=== PATIENT | male | born 1965 | race Caucasian/White ===

== ENCOUNTER 2019-11-19 11:34 | Emergency (ER) | payer OTHER, MEDICARE ==
[~2019-11-19] VITALS: Ht 177.8 cm; Wt 130.4 kg
[2019-11-19] MEDS ORDERED: RANI150T7 PO (11:58)
[2019-11-19] MEDS ORDERED: SPIR25 PO (11:58)
[2019-11-19] MEDS ORDERED: LISI-662 PO (11:58)
[2019-11-19] MEDS ORDERED: APIX5TAB PO (11:58)
[2019-11-19] MEDS ORDERED: GABA-531 PO (11:58)
[2019-11-19] MEDS ORDERED: ASPI-728 PO (11:58)
[2019-11-19] MEDS ORDERED: ATOR40TA28 PO (11:58)
[2019-11-19] MEDS ORDERED: AMLO10TA7 PO (11:58)
[2019-11-19] MEDS ORDERED: PANT40TA25 PO (11:58)
[2019-11-19] MEDS ORDERED: ISOS60TA4 PO (11:58)
[2019-11-19] MEDS ORDERED: FURO20 PO (11:58)
[2019-11-19] MEDS ORDERED: CARV25 PO (11:58)
[2019-11-19] MEDS ORDERED: METF-960 PO (11:58)
[2019-11-19] MEDS ORDERED: SULFAMETHOX/TRIMETH DS 800-160 MG/TABLET PO ONE (12:45)
[2019-11-19] MEDS ORDERED: CEPHALEXIN MONOHYDRATE 500 MG CAPSULE PO ONE (12:45)
[2019-11-19 13:18] VITALS: BP 151/82
[2019-11-19] MEDS ORDERED: IBUPROFEN 400 MG TABLET PO ONE (13:45)
== END 2019-11-19 14:45 | disposition home or self-care (01) ==
LOC: EMS 11:38
DX: L03.317 Cellulitis of buttock (principal); E11.9 Type 2 diabetes mellitus without complications; E78.00 Pure hypercholesterolemia, unspecified; I48.91 Unspecified atrial fibrillation; I25.10 Atherosclerotic heart disease of native coronary artery without angina pectoris; I10 Essential (primary) hypertension; Z90.49 Acquired absence of other specified parts of digestive tract; Z79.899 Other long term (current) drug therapy; Z98.890 Other specified postprocedural states; Z88.0 Allergy status to penicillin; Z86.73 Personal history of transient ischemic attack (TIA), and cerebral infarction without residual deficits; Z86.718 Personal history of other venous thrombosis and embolism; Z88.8 Allergy status to other drugs, medicaments and biological substances; Z79.82 Long term (current) use of aspirin
CPT/HCPCS: 76881

== ENCOUNTER 2020-01-14 19:38 | Emergency (ER) | payer OTHER ==
[~2020-01-14] VITALS: Ht 177.8 cm; Wt 131.8 kg
[~2020-01-14 19:38] MED LIST: AMLO10TA7 PO; APIX5TAB PO; ASPI-728 PO; ATOR40TA28 PO; CARV25 PO; FURO20 PO; GABA-531 PO; ISOS60TA4 PO; LISI-662 PO; METF-960 PO; PANT40TA25 PO; RANI150T7 PO; SPIR25 PO
[2020-01-14] MEDS ORDERED: TRAZ-252 PO (20:37)
[2020-01-14] MEDS ORDERED: INSREG SQ (20:37)
[2020-01-14] MEDS ORDERED: INSLAN SQ (20:37)
[2020-01-14 20:40] LABS: GLUCOSE,POINT OF CARE 394 MG/DL (70-110)
[2020-01-14] MEDS ORDERED: METF-961 PO (20:41)
[2020-01-14] MEDS ORDERED: AMLO5TAB9 PO (20:41)
[2020-01-14] MEDS ORDERED: KETOROLAC TROMETHAMINE 30 MG/ML VIAL IM ONE (20:45)
[2020-01-14 21:50] VITALS: BP 143/79
== END 2020-01-14 22:05 | disposition home or self-care (01) ==
LOC: EDSEX → EMS 19:38
DX: M79.604 Pain in right leg (principal); I48.91 Unspecified atrial fibrillation; I25.10 Atherosclerotic heart disease of native coronary artery without angina pectoris; F32.9 Major depressive disorder, single episode, unspecified; E11.9 Type 2 diabetes mellitus without complications; E78.00 Pure hypercholesterolemia, unspecified; I25.2 Old myocardial infarction; Z90.89 Acquired absence of other organs; Z88.0 Allergy status to penicillin; Z88.8 Allergy status to other drugs, medicaments and biological substances; Z79.899 Other long term (current) drug therapy; Z79.4 Long term (current) use of insulin
CPT/HCPCS: 82962; 93971; 96372; 99284; J1885

== ENCOUNTER 2020-01-17 22:20 | Inpatient (IN) | payer OTHER ==
[~2020-01-17 22:20] MED LIST changes: -AMLO10TA7 PO; +AMLO5TAB9 PO; +INSLAN SQ; +INSREG SQ; -METF-960 PO; +METF-961 PO; -RANI150T7 PO; +TRAZ-252 PO
[2020-01-17 22:24] VITALS: BP 182/114
[2020-01-17 23:10] VITALS: BP 200/109
[2020-01-17] MEDS ORDERED: OxyCODONE HCL/ACETAMINOPHEN 5-325 MG TABLET PO PRN (23:30)
[2020-01-17] MEDS ORDERED: 0.9% SODIUM CHLORIDE 10 ML SYRINGE IVP PRN (23:30)
[2020-01-17] MEDS ORDERED: MAGNESIUM HYDROXIDE SUSPENSION 30 ML UDCUP PO PRN (23:30)
[2020-01-17] MEDS ORDERED: ACETAMINOPHEN 325 MG TABLET PO PRN (23:30)
[2020-01-17] MEDS ORDERED: ONDANSETRON HCL 4 MG/2 ML VIAL IVP PRN (23:30)
[2020-01-17] MEDS ORDERED: DEXTROSE 50%-WATER 25 GM/50 ML SYRINGE IVP PRN (23:30)
[2020-01-18] MEDS: PANTOPRAZOLE SODIUM 40 MG DR TABLET PO SCH ×3 (00:50→20:37)
[2020-01-18] MEDS: TraZODone HCL 50 MG TABLET PO SCH ×2 (00:51→20:43)
[2020-01-18] MEDS: DOCUSATE SODIUM 100 MG CAPSULE PO SCH ×2 (00:51→09:00)
[2020-01-18] MEDS: APIXABAN 5 MG TABLET PO SCH ×3 (00:51→20:37)
[2020-01-18] MEDS: CARVEDILOL 25 MG TABLET PO SCH ×3 (00:51→20:38)
[2020-01-18] MEDS: ATORVASTATIN CALCIUM 40 MG TABLET PO SCH ×2 (00:51→20:37)
[2020-01-18] MEDS: INSULIN GLARGINE,HUM.REC.ANLOG 100 UNITS/ML SQ SCH ×3 (00:54→20:41)
[2020-01-18] MEDS: INSULIN LISPRO 100 UNITS/ML SQ PRN ×4 (00:55→20:42)
[2020-01-18 03:04] VITALS: BP 147/71
[2020-01-18 04:19] LABS: GLUCOMETER DEV NAME(LOC) 5S.1; GLUCOSE,POINT OF CARE 290 MG/DL (70-110)
[2020-01-18 08:38] VITALS: BP 173/85
[2020-01-18] MEDS: LISINOPRIL 20 MG TABLET PO SCH (09:00)
[2020-01-18] MEDS: ISOSORBIDE MONONITRATE 60 MG ER TABLET PO SCH (09:00)
[2020-01-18] MEDS: SPIRONOLACTONE 25 MG TABLET PO SCH (09:00)
[2020-01-18] MEDS: GABAPENTIN 300 MG CAPSULE PO SCH ×3 (09:00→20:37)
[2020-01-18] MEDS: ASPIRIN 81 MG CHEWABLE TABLET PO SCH (09:00)
[2020-01-18] MEDS: AmLODIPine BESYLATE 5 MG TABLET PO SCH (09:00)
[2020-01-18 10:05] LABS: GLUCOMETER DEV NAME(LOC) 5N.2; GLUCOSE,POINT OF CARE 266 MG/DL (70-110)
[2020-01-18] MEDS ORDERED: HydrALAZINE HCL 20 MG/ML VIAL IVP PRN (11:45)
[2020-01-18 11:51] VITALS: BP 144/96
[2020-01-18 12:06] LABS: BASOPHILS % (AUTO) 0.7 % (0.0-2.0); HEMATOCRIT 41.1 % (41-53); HEMOGLOBIN 13.7 g/dL (13.5-17.5); LYMPHOCYTES # (AUTO) 1.3 K/uL (1.0-4.8); LYMPHOCYTES % (AUTO) 20.4 % (22.0-44.0); MEAN CORPUSCULAR HEMOGLOBIN 26.8 pg (26.0-34.0); MEAN CORPUSCULAR HGB CONC 33.2 G/dL (31.0-37.0); MEAN CORPUSCULAR VOLUME 81 fL (80-100); MONOCYTES # (AUTO) 0.6 K/uL (0.1-1.0); MONOCYTES % (AUTO) 9.2 % (2.0-9.0); NEUTROPHILS % (AUTO) 63.7 % (40.0-70.0); PLATELET COUNT (AUTO) 183 K/uL (150-450); RED BLOOD CELL COUNT(AUTO) 5.09 MIL/uL (4.50-5.90)
[2020-01-18 12:13] LABS: GLUCOMETER DEV NAME(LOC) 5N.1; GLUCOSE,POINT OF CARE 269 MG/DL (70-110)
[2020-01-18 12:27] LABS: ALANINE AMINOTRANSFERASE 37 U/L (12-78); ALBUMIN 3.3 g/dL (3.4-5.0); ALKALINE PHOSPHATASE 58 U/L (46-116); ANION GAP 9 mmol/L (8-16); ASPARTATE AMINOTRANSFERASE 24 U/L (15-37); BILIRUBIN,TOTAL 0.9 mg/dL (0.1-1.0); CALCIUM, TOTAL 8.4 mg/dL (8.8-10.5); CARBON DIOXIDE 25 mmol/L (22-29); CHLORIDE 104 mmol/L (98-107); CREATININE 0.83 mg/dL (0.60-1.30); GLOMERULAR FILTR. RATE CALC > 60 mL/min (>60); GLUCOSE,RANDOM 292 mg/dL (70-110); POTASSIUM 3.9 mmol/L (3.5-5.1); SODIUM SERUM 138 mmol/L (136-145); UREA NITROGEN, BLOOD 14 mg/dL (7-18)
[2020-01-18] MEDS: FUROSEMIDE 40 MG/4 ML VIAL IVP SCH (13:13)
[2020-01-18 15:51] VITALS: BP 123/77
[2020-01-18] MEDS: OxyCODONE HCL/ACETAMINOPHEN 5-325 MG TABLET PO PRN ×2 (17:54→23:27)
[2020-01-18 20:24] LABS: GLUCOMETER DEV NAME(LOC) 5N.1; GLUCOSE,POINT OF CARE 313 MG/DL (70-110)
[2020-01-18 20:24] LABS: GLUCOMETER DEV NAME(LOC) 5N.1; GLUCOSE,POINT OF CARE 293 MG/DL (70-110)
[2020-01-18 20:28] VITALS: BP 127/80
[2020-01-18] MEDS: DOCUSATE SODIUM 100 MG CAPSULE PO PRN (20:37)
[2020-01-18 23:23] VITALS: BP 148/75
[2020-01-19 03:55] LABS: INFLUENZA TYPE A NEGATIVE FOR TYPE A (NEGATIVE); INFLUENZA TYPE B NEGATIVE FOR TYPE B (NEGATIVE)
[2020-01-19 04:31] VITALS: BP 132/77
[2020-01-19] MEDS: OxyCODONE HCL/ACETAMINOPHEN 5-325 MG TABLET PO PRN ×2 (06:03→12:59)
[2020-01-19 08:07] VITALS: BP 172/98
[2020-01-19 08:16] LABS: CHOL/HDL RATIO 4.4 (4.2-7.3)
[2020-01-19] MEDS: FUROSEMIDE 40 MG/4 ML VIAL IVP SCH (08:35)
[2020-01-19] MEDS: ISOSORBIDE MONONITRATE 60 MG ER TABLET PO SCH (08:36)
[2020-01-19] MEDS: AmLODIPine BESYLATE 5 MG TABLET PO SCH (08:36)
[2020-01-19] MEDS: GABAPENTIN 300 MG CAPSULE PO SCH ×3 (08:36→22:10)
[2020-01-19] MEDS: ASPIRIN 81 MG CHEWABLE TABLET PO SCH (08:36)
[2020-01-19] MEDS: LISINOPRIL 20 MG TABLET PO SCH (08:36)
[2020-01-19] MEDS: CARVEDILOL 25 MG TABLET PO SCH ×2 (08:37→22:11)
[2020-01-19] MEDS: APIXABAN 5 MG TABLET PO SCH ×2 (08:37→22:11)
[2020-01-19] MEDS: SPIRONOLACTONE 25 MG TABLET PO SCH (08:37)
[2020-01-19] MEDS: PANTOPRAZOLE SODIUM 40 MG DR TABLET PO SCH ×2 (08:37→22:10)
[2020-01-19] MEDS: INSULIN GLARGINE,HUM.REC.ANLOG 100 UNITS/ML SQ SCH ×2 (08:51→22:14)
[2020-01-19 12:13] VITALS: BP 152/76
[2020-01-19] MEDS: INSULIN LISPRO 100 UNITS/ML SQ PRN ×2 (12:35→22:14)
[2020-01-19 15:40] VITALS: BP 122/60
[2020-01-19 20:41] VITALS: BP 128/74
[2020-01-19 20:43] LABS: GLUCOMETER DEV NAME(LOC) 5N.2; GLUCOSE,POINT OF CARE 362 MG/DL (70-110)
[2020-01-19 20:43] LABS: GLUCOMETER DEV NAME(LOC) 5N.2; GLUCOSE,POINT OF CARE 257 MG/DL (70-110)
[2020-01-19 20:43] LABS: GLUCOMETER DEV NAME(LOC) 5N.2; GLUCOSE,POINT OF CARE 269 MG/DL (70-110)
[2020-01-19] MEDS: ATORVASTATIN CALCIUM 40 MG TABLET PO SCH (22:11)
[2020-01-19] MEDS: TraZODone HCL 50 MG TABLET PO SCH ×2 (22:12→23:42)
[2020-01-20 00:07] VITALS: BP 141/76
[2020-01-20 05:49] VITALS: BP 140/67
[2020-01-20] MEDS: OxyCODONE HCL/ACETAMINOPHEN 5-325 MG TABLET PO PRN ×2 (06:29→21:01)
[2020-01-20] MEDS: INSULIN LISPRO 100 UNITS/ML SQ PRN ×4 (06:38→21:06)
[2020-01-20 08:16] VITALS: BP 144/78
[2020-01-20 08:22] LABS: BASOPHILS % (AUTO) 0.6 % (0.0-2.0); HEMATOCRIT 39.7 % (41-53); HEMOGLOBIN 13.4 g/dL (13.5-17.5); LYMPHOCYTES # (AUTO) 1.3 K/uL (1.0-4.8); LYMPHOCYTES % (AUTO) 23.1 % (22.0-44.0); MEAN CORPUSCULAR HEMOGLOBIN 27.2 pg (26.0-34.0); MEAN CORPUSCULAR HGB CONC 33.7 G/dL (31.0-37.0); MEAN CORPUSCULAR VOLUME 81 fL (80-100); MONOCYTES # (AUTO) 0.7 K/uL (0.1-1.0); MONOCYTES % (AUTO) 12.9 % (2.0-9.0); NEUTROPHILS # (AUTO) 3.2 K/uL (1.8-7.7); NEUTROPHILS % (AUTO) 56.4 % (40.0-70.0); PLATELET COUNT (AUTO) 168 K/uL (150-450); RED BLOOD CELL COUNT(AUTO) 4.92 MIL/uL (4.50-5.90); RED CELL DISTRIBUTION WIDTH 15.4 % (11.5-14.5)
[2020-01-20 08:23] LABS: ALANINE AMINOTRANSFERASE 31 U/L (12-78); ALBUMIN 3.2 g/dL (3.4-5.0); ALKALINE PHOSPHATASE 56 U/L (46-116); ANION GAP 6 mmol/L (8-16); ASPARTATE AMINOTRANSFERASE 20 U/L (15-37); BILIRUBIN,TOTAL 0.6 mg/dL (0.1-1.0); CALCIUM, TOTAL 9.7 mg/dL (8.8-10.5); CARBON DIOXIDE 28 mmol/L (22-29); CHLORIDE 103 mmol/L (98-107); CREATININE 0.79 mg/dL (0.60-1.30); GLOMERULAR FILTR. RATE CALC > 60 mL/min (>60); GLUCOSE,RANDOM 301 mg/dL (70-110); POTASSIUM 3.8 mmol/L (3.5-5.1); SODIUM SERUM 137 mmol/L (136-145); TOTAL PROTEIN, SERUM 6.8 g/dL (6.4-8.2); UREA NITROGEN, BLOOD 20 mg/dL (7-18)
[2020-01-20] MEDS: FUROSEMIDE 40 MG/4 ML VIAL IVP SCH ×2 (09:35→09:36)
[2020-01-20] MEDS: GABAPENTIN 300 MG CAPSULE PO SCH ×3 (09:37→21:01)
[2020-01-20] MEDS: ASPIRIN 81 MG CHEWABLE TABLET PO SCH (09:37)
[2020-01-20] MEDS: DOCUSATE SODIUM 100 MG CAPSULE PO PRN (09:37)
[2020-01-20] MEDS: ISOSORBIDE MONONITRATE 60 MG ER TABLET PO SCH (09:37)
[2020-01-20] MEDS: PANTOPRAZOLE SODIUM 40 MG DR TABLET PO SCH ×2 (09:37→20:56)
[2020-01-20] MEDS: CARVEDILOL 25 MG TABLET PO SCH ×2 (09:38→20:56)
[2020-01-20] MEDS: INSULIN GLARGINE,HUM.REC.ANLOG 100 UNITS/ML SQ SCH ×2 (09:41→21:06)
[2020-01-20] MEDS: LISINOPRIL 20 MG TABLET PO SCH (12:23)
[2020-01-20] MEDS: APIXABAN 5 MG TABLET PO SCH ×2 (12:24→20:58)
[2020-01-20] MEDS: SPIRONOLACTONE 25 MG TABLET PO SCH (12:24)
[2020-01-20] MEDS: AmLODIPine BESYLATE 5 MG TABLET PO SCH (12:24)
[2020-01-20 12:35] VITALS: BP 121/71
[2020-01-20 12:41] LABS: GLUCOMETER DEV NAME(LOC) 5N.2; GLUCOSE,POINT OF CARE 291 MG/DL (70-110)
[2020-01-20 12:47] LABS: GLUCOMETER DEV NAME(LOC) 5N.1; GLUCOSE,POINT OF CARE 259 MG/DL (70-110)
[2020-01-20 12:48] LABS: GLUCOMETER DEV NAME(LOC) 5N.1; GLUCOSE,POINT OF CARE 282 MG/DL (70-110)
[2020-01-20 15:04] VITALS: BP 106/58
[2020-01-20 19:27] VITALS: BP 123/65
[2020-01-20] MEDS: ATORVASTATIN CALCIUM 40 MG TABLET PO SCH (20:56)
[2020-01-20] MEDS: TraZODone HCL 50 MG TABLET PO SCH (20:57)
[2020-01-20 21:01] LABS: GLUCOMETER DEV NAME(LOC) 5N.1; GLUCOSE,POINT OF CARE 245 MG/DL (70-110)
[2020-01-21 00:15] VITALS: BP 116/65
[2020-01-21 04:48] VITALS: BP 140/66
[2020-01-21 06:15] LABS: GLUCOMETER DEV NAME(LOC) 5N.2; GLUCOSE,POINT OF CARE 249 MG/DL (70-110)
[2020-01-21 07:48] VITALS: BP 148/89
[2020-01-21 07:54] LABS: GLUCOMETER DEV NAME(LOC) 5N.2; GLUCOSE,POINT OF CARE 227 MG/DL (70-110)
[2020-01-21] MEDS: ISOSORBIDE MONONITRATE 60 MG ER TABLET PO SCH (08:11)
[2020-01-21] MEDS: GABAPENTIN 300 MG CAPSULE PO SCH ×2 (08:11→15:21)
[2020-01-21] MEDS: PANTOPRAZOLE SODIUM 40 MG DR TABLET PO SCH (08:11)
[2020-01-21] MEDS: AmLODIPine BESYLATE 5 MG TABLET PO SCH (08:11)
[2020-01-21] MEDS: LISINOPRIL 20 MG TABLET PO SCH (08:11)
[2020-01-21] MEDS: SPIRONOLACTONE 25 MG TABLET PO SCH (08:12)
[2020-01-21] MEDS: CARVEDILOL 25 MG TABLET PO SCH (08:13)
[2020-01-21] MEDS: APIXABAN 5 MG TABLET PO SCH (08:13)
[2020-01-21] MEDS: ASPIRIN 81 MG CHEWABLE TABLET PO SCH (08:13)
[2020-01-21] MEDS: INSULIN GLARGINE,HUM.REC.ANLOG 100 UNITS/ML SQ SCH (08:17)
[2020-01-21 11:19] VITALS: BP 128/88
[2020-01-21] MEDS: INSULIN LISPRO 100 UNITS/ML SQ PRN ×2 (11:46→17:24)
[2020-01-21 12:21] LABS: GLUCOMETER DEV NAME(LOC) 5N.2; GLUCOSE,POINT OF CARE 326 MG/DL (70-110)
[2020-01-21] MEDS: OxyCODONE HCL/ACETAMINOPHEN 5-325 MG TABLET PO PRN (14:42)
[2020-01-21 17:08] VITALS: BP 117/78
[2020-01-22 07:36] LABS: GLUCOMETER DEV NAME(LOC) 5N.1; GLUCOSE,POINT OF CARE 211 MG/DL (70-110)
== END 2020-01-21 17:40 | disposition home or self-care (01) | DRG 292 ==
LOC: 5S 22:20 → EDSEX 22:20 → 5N 01-18 05:00
PROVIDERS: ADMIT Internal Medicine; ATTEND Internal Medicine
DX: I11.0 Hypertensive heart disease with heart failure (principal); I48.20 Chronic atrial fibrillation, unspecified; I82.409 Acute embolism and thrombosis of unspecified deep veins of unspecified lower extremity; E11.9 Type 2 diabetes mellitus without complications; E78.00 Pure hypercholesterolemia, unspecified; E66.9 Obesity, unspecified; D64.9 Anemia, unspecified; Z20.828 Contact with and (suspected) exposure to other viral communicable diseases; F32.9 Major depressive disorder, single episode, unspecified; I25.10 Atherosclerotic heart disease of native coronary artery without angina pectoris; E78.5 Hyperlipidemia, unspecified; I50.43 Acute on chronic combined systolic (congestive) and diastolic (congestive) heart failure; Z91.14 Patient's other noncompliance with medication regimen; Z88.0 Allergy status to penicillin; Z88.8 Allergy status to other drugs, medicaments and biological substances; Z86.73 Personal history of transient ischemic attack (TIA), and cerebral infarction without residual deficits; Z79.4 Long term (current) use of insulin; I25.2 Old myocardial infarction; Z86.718 Personal history of other venous thrombosis and embolism; Z90.49 Acquired absence of other specified parts of digestive tract; Z95.5 Presence of coronary angioplasty implant and graft; Z79.84 Long term (current) use of oral hypoglycemic drugs
CPT/HCPCS: 83735; 84145; 87635; 87804; 93005; 93306; J1815; J1940

== ENCOUNTER 2021-03-10 10:41 | Inpatient (IN) | payer OTHER ==
[~2021-03-10] VITALS: Ht 167.6 cm; Wt 129.1 kg
[~2021-03-10 10:41] MED LIST changes: +AMLO-257 PO; -AMLO5TAB9 PO; +ASPI-1450 PO; -ASPI-728 PO; +GABA-1181 PO; -GABA-531 PO; -ISOS60TA4 PO; +ISOS60TA77 PO; -LISI-662 PO; +LISI-894 PO; +PANT-31 PO; -PANT40TA25 PO
[2021-03-10] MEDS ORDERED: ASPIRIN 81 MG CHEWABLE TABLET PO ONE (11:00)
[2021-03-10] MEDS ORDERED: DULO30CA96 PO (11:05)
[2021-03-10] MEDS ORDERED: OMEP20 PO (11:05)
[2021-03-10] MEDS ORDERED: HYD50 PO (11:05)
[2021-03-10] MEDS ORDERED: GLIP5 PO (11:05)
[2021-03-10] MEDS ORDERED: FURO40 PO (11:25)
[2021-03-10] MEDS ORDERED: AMLO-258 PO (11:25)
[2021-03-10] MEDS ORDERED: TRAZ150 PO (11:25)
[2021-03-10] MEDS ORDERED: GABA-1201 PO (11:26)
[2021-03-10 11:35] LABS: GLUCOSE,POINT OF CARE 343 MG/DL (70-110)
[2021-03-10 11:47] LABS: BASOPHILS % (AUTO) 0.5 % (0.0-2.0); EOSINOPHILS % (AUTO) 4.4 % (1.0-6.0); HEMATOCRIT 39.9 % (41-53); HEMOGLOBIN 13.5 g/dL (13.5-17.5); LYMPHOCYTES # (AUTO) 1.5 K/uL (1.0-4.8); LYMPHOCYTES % (AUTO) 26.6 % (22.0-44.0); MEAN CORPUSCULAR HEMOGLOBIN 27.3 pg (26.0-34.0); MEAN CORPUSCULAR HGB CONC 33.9 G/dL (31.0-37.0); MEAN CORPUSCULAR VOLUME 80 fL (80-100); MONOCYTES # (AUTO) 0.6 K/uL (0.1-1.0); MONOCYTES % (AUTO) 10.4 % (2.0-9.0); NEUTROPHILS # (AUTO) 3.3 K/uL (1.8-7.7); NEUTROPHILS % (AUTO) 58.1 % (40.0-70.0); PLATELET COUNT (AUTO) 165 K/uL (150-450); RED BLOOD CELL COUNT(AUTO) 4.97 MIL/uL (4.50-5.90); RED CELL DISTRIBUTION WIDTH 13.2 % (11.5-14.5)
[2021-03-10 11:55] LABS: ANION GAP 7 mmol/L (8-16); CALCIUM, TOTAL 8.3 mg/dL (8.8-10.5); CARBON DIOXIDE 28 mmol/L (22-29); CHLORIDE 104 mmol/L (98-107); CREATININE 0.83 mg/dL (0.60-1.30); GLOMERULAR FILTR. RATE CALC > 60 mL/min (>60); GLUCOSE,RANDOM 347 mg/dL (70-110); POTASSIUM 3.5 mmol/L (3.5-5.1); SODIUM SERUM 139 mmol/L (136-145); UREA NITROGEN, BLOOD 11 mg/dL (7-18)
[2021-03-10 12:05] LABS: B-TYPE NATRIURETIC PEPTIDE 112 pg/mL (0-100)
[2021-03-10 12:16] LABS: COVID AG,FIA SOURCE NASOPHARYNGEAL
[2021-03-10] MEDS ORDERED: ONDANSETRON HCL 4 MG/2 ML VIAL IVP PRN ×2 (12:45→18:45)
[2021-03-10] MEDS ORDERED: ACETAMINOPHEN 325 MG TABLET PO PRN (12:45)
[2021-03-10] MEDS ORDERED: DEXTROSE 50%-WATER 25 GM/50 ML SYRINGE IVP PRN (13:45)
[2021-03-10 14:09] VITALS: BP 172/101
[2021-03-10 15:25] VITALS: BP 159/92
[2021-03-10] MEDS: INSULIN LISPRO 100 UNITS/ML SQ PRN ×2 (18:24→20:57)
[2021-03-10] MEDS ORDERED: ZOLPIDEM TARTRATE 10 MG TABLET PO PRN (18:45)
[2021-03-10] MEDS ORDERED: MAGNESIUM HYDROXIDE SUSPENSION 30 ML UDCUP PO PRN (18:45)
[2021-03-10] MEDS ORDERED: IPRATROPIUM BROMIDE 0.5 MG/2.5 ML NEB SOLUTION NEB PRN (18:45)
[2021-03-10 20:52] VITALS: BP 145/97
[2021-03-10] MEDS: TraZODone HCL 150 MG TABLET PO SCH (20:54)
[2021-03-10] MEDS: ATORVASTATIN CALCIUM 40 MG TABLET PO SCH (20:54)
[2021-03-10] MEDS: HydrOXYzine HCL 50 MG TABLET PO SCH (20:54)
[2021-03-10] MEDS: APIXABAN 5 MG TABLET PO SCH (20:54)
[2021-03-10] MEDS: GABAPENTIN 400 MG CAPSULE PO SCH (20:55)
[2021-03-10] MEDS: CARVEDILOL 25 MG TABLET PO SCH (20:55)
[2021-03-11 00:02] VITALS: BP 143/86
[2021-03-11] MEDS: NITROGLYCERIN 2% (1 GM=INCH) PACKET TP SCH ×4 (00:16→17:37)
[2021-03-11 03:50] VITALS: BP 144/84
[2021-03-11] MEDS: ACETAMINOPHEN 325 MG TABLET PO PRN ×2 (05:39→12:01)
[2021-03-11] MEDS: GlipiZIDE 5 MG TABLET PO SCH (05:39)
[2021-03-11] MEDS: INSULIN LISPRO 100 UNITS/ML SQ PRN ×4 (05:41→20:26)
[2021-03-11 07:07] LABS: CHOL/HDL RATIO 4.6 (4.2-7.3)
[2021-03-11 08:20] VITALS: BP 138/78
[2021-03-11] MEDS: CARVEDILOL 25 MG TABLET PO SCH ×2 (09:00→20:24)
[2021-03-11] MEDS: OMEPRAZOLE 20 MG CAPSULE PO SCH (09:28)
[2021-03-11] MEDS: APIXABAN 5 MG TABLET PO SCH ×2 (09:28→20:24)
[2021-03-11] MEDS: ASPIRIN 81 MG CHEWABLE TABLET PO SCH (09:28)
[2021-03-11] MEDS: GABAPENTIN 400 MG CAPSULE PO SCH ×3 (09:28→20:24)
[2021-03-11] MEDS: AmLODIPine BESYLATE 10 MG TABLET PO SCH (09:28)
[2021-03-11] MEDS: DULoxetine HCL 30 MG CAPSULE PO SCH (09:28)
[2021-03-11 12:24] VITALS: BP 133/81
[2021-03-11 15:30] VITALS: BP 144/80
[2021-03-11 17:34] LABS: GLUCOMETER DEV NAME(LOC) 5S.2B; GLUCOSE,POINT OF CARE 269 MG/DL (70-110)
[2021-03-11 20:07] VITALS: BP 141/86
[2021-03-11] MEDS: TraZODone HCL 150 MG TABLET PO SCH (20:23)
[2021-03-11] MEDS: HydrOXYzine HCL 50 MG TABLET PO SCH (20:24)
[2021-03-11] MEDS: ATORVASTATIN CALCIUM 40 MG TABLET PO SCH (20:24)
[2021-03-12 00:50] VITALS: BP 142/83
[2021-03-12 05:28] VITALS: BP 142/78
[2021-03-12] MEDS: NITROGLYCERIN 2% (1 GM=INCH) PACKET TP SCH ×3 (05:54→12:00)
[2021-03-12] MEDS: INSULIN LISPRO 100 UNITS/ML SQ PRN ×2 (05:54→12:13)
[2021-03-12] MEDS: GlipiZIDE 5 MG TABLET PO SCH (05:54)
[2021-03-12 07:25] VITALS: BP 133/79
[2021-03-12] MEDS: OMEPRAZOLE 20 MG CAPSULE PO SCH (08:17)
[2021-03-12] MEDS: AmLODIPine BESYLATE 10 MG TABLET PO SCH (08:17)
[2021-03-12] MEDS: GABAPENTIN 400 MG CAPSULE PO SCH (08:17)
[2021-03-12] MEDS: DULoxetine HCL 30 MG CAPSULE PO SCH (08:17)
[2021-03-12] MEDS: ASPIRIN 81 MG CHEWABLE TABLET PO SCH (08:17)
[2021-03-12] MEDS: APIXABAN 5 MG TABLET PO SCH (08:17)
[2021-03-12] MEDS: CARVEDILOL 25 MG TABLET PO SCH (08:17)
[2021-03-12 11:21] VITALS: BP 154/84
[2021-03-12 11:37] LABS: GLUCOMETER DEV NAME(LOC) 5S.1; GLUCOSE,POINT OF CARE 269 MG/DL (70-110)
[2021-03-12 12:44] LABS: GLUCOMETER DEV NAME(LOC) 5N.1C; GLUCOSE,POINT OF CARE 218 MG/DL (70-110)
[2021-03-12 12:44] LABS: GLUCOMETER DEV NAME(LOC) 5N.1C; GLUCOSE,POINT OF CARE 252 MG/DL (70-110)
[2021-03-13 11:31] LABS: GLUCOMETER DEV NAME(LOC) 5S.2B; GLUCOSE,POINT OF CARE 259 MG/DL (70-110)
[2021-03-13 11:31] LABS: GLUCOMETER DEV NAME(LOC) 5N.3; GLUCOSE,POINT OF CARE 251 MG/DL (70-110)
[2021-03-13 11:31] LABS: GLUCOMETER DEV NAME(LOC) 5N.3; GLUCOSE,POINT OF CARE 213 MG/DL (70-110)
[2021-03-13 11:31] LABS: GLUCOMETER DEV NAME(LOC) 5N.3; GLUCOSE,POINT OF CARE 225 MG/DL (70-110)
== END 2021-03-12 14:17 | DRG 310 ==
LOC: EMS 11:45 → 5S 13:17
PROVIDERS: ADMIT Internal Medicine; ATTEND Internal Medicine
DX: I48.91 Unspecified atrial fibrillation (principal); I10 Essential (primary) hypertension; E11.319 Type 2 diabetes mellitus with unspecified diabetic retinopathy without macular edema; G47.00 Insomnia, unspecified; I25.10 Atherosclerotic heart disease of native coronary artery without angina pectoris; D64.9 Anemia, unspecified; Z86.73 Personal history of transient ischemic attack (TIA), and cerebral infarction without residual deficits; F32.9 Major depressive disorder, single episode, unspecified; E78.00 Pure hypercholesterolemia, unspecified; I25.2 Old myocardial infarction; Z90.49 Acquired absence of other specified parts of digestive tract; Z88.0 Allergy status to penicillin; Z88.8 Allergy status to other drugs, medicaments and biological substances; E11.42 Type 2 diabetes mellitus with diabetic polyneuropathy; E11.65 Type 2 diabetes mellitus with hyperglycemia; Z20.822 Contact with and (suspected) exposure to COVID-19
CPT/HCPCS: 71045; 80048; 80061; 82962; 83880; 84484; 85025; 93005; 93306; 99285; 36415-L1; 36415-TC